=== PATIENT | female | born 1985 | race Caucasian/White ===

== ENCOUNTER 2016-10-02 21:55 | Emergency (ER) | payer OTHER ==
[2016-10-02 22:00] VITALS: PULSE 78; RESP 18; TEMP 98.1
[2016-10-02] MEDS ORDERED: diphenhydrAMINE 50 MG CAP PO STA (22:20)
[2016-10-02] MEDS ORDERED: predniSONE 20 MG TAB PO STA (22:21)
[2016-10-02] MEDS ORDERED: FAMOTIDINE 20 MG TAB PO STA (22:21)
--- NOTE | 2016-10-02 22:23 | ED ---
General Adult HPI - General Chief complaint: Allergic Reaction Stated complaint: allergic reaction Time Seen by Provider: 10/02/16 22:16 Source: patient, RN notes reviewed Mode of arrival: ambulatory Limitations: no limitations - History of Present Illness Initial comments: This is a 31-year-old female presents with hives to her elbows, the back of her neck, behind her ears and on her hands. This started this morning. Patient denies any known trigger for the hives. Patient denies any new routines, new lotions, new soaps, or new medications area and patient does not know why she has hives. Patient states the rash itches. Patient has tried hydrocortisone cream but it just keeps getting worse. Patient did not take Benadryl. Patient denies any chance of being . Patient denies any recent fever, chills, shortness breath, chest pain, abdominal pain, nausea/vomiting/diarrhea, back pain, numbness, tingling, hematuria, headache, or visual changes, or any other complaints. - Related Data Home Medications Medication Instructions Recorded Confirmed Methimazole 1 tab PO DAILY 10/02/16 10/02/16 Methocarbamol [Robaxin] 1 tab PO DAILY 10/02/16 10/02/16 Omeprazole 1 tab PO DAILY 10/02/16 10/02/16 Propranolol [Inderal] 1 tab PO DAILY 10/02/16 10/02/16 Venlafaxine HCl [Effexor XR] 1 tab PO DAILY 10/02/16 10/02/16 Previous Rx's Medication Instructions Recorded Famotidine [Pepcid] 20 mg PO DAILY 3 Days 10/02/16 diphenhydrAMINE [Benadryl] 25 mg PO TID 3 Days 10/02/16 predniSONE 20 mg PO DAILY 3 Days 10/02/16 Allergies Allergy/AdvReac Type Severity Reaction Status Date / Time No Known Allergies Allergy Verified 10/02/16 22:00 Review of Systems ROS Statement: Those systems with pertinent positive or pertinent negative responses have been documented in the HPI. ROS Other: All systems not noted in ROS Statement are negative. Past Medical History Past Medical History: No Reported History Additional Past Medical History / Comment(s): hyperthyroidism, graves History of Any Multi-Drug Resistant Organisms: MRSA Date of last positivie culture/infection: 2004 MDRO Source:: buttock Past Surgical History: No Surgical Hx Reported Past Psychological History: Anxiety, Depression Smoking Status: Never smoker Past Alcohol Use History: Rare Past Drug Use History: None Reported General Exam - General Exam Comments Initial Comments: General: The patient is awake and alert, in no distress, and does not appear acutely ill. Eye: Pupils are equal, round and reactive to light, extra-ocular movements are intact. No nystagmus. There is normal conjunctiva bilaterally. No signs of icterus. Ears: TMs pink and pearly with intact cone of light bilaterally. Normal external ear canals Nose: Nasal turbinates pink and moist Mouth and throat: There are moist mucous membranes and no oral lesions. Neck: The neck is supple, there is no tenderness or JVD. Cardiovascular: There is a regular rate and rhythm. No murmur, rub or gallop is appreciated. Respiratory: Lungs are clear to auscultation, respirations are non-labored, breath sounds are equal. No wheezes, stridor, rales, or rhonchi. Musculoskeletal: Normal ROM, no tenderness. Strength 5/5. Sensation intact. Radial Pulses equal bilaterally 2+. Neurological: A&O x 3. CN II-XII intact, There are no obvious motor or sensory deficits. Coordination appears grossly intact. Speech is normal. Skin: There is an erythematous and raised rash consistent with urticaria to the patient's extensor surfaces of the elbow, the back of the neck, behind the ears in starting on the front of her neck. This rash itches. This rash blanches. Skin is warm and dry. Psychiatric: Cooperative, appropriate mood & affect, normal judgment. Limitations: no limitations Course Vital Signs 10/02/16 21:58 Temperature 98.1 F Pulse Rate 78 Respiratory 18 Rate Blood Pressure 134/80 Medical Decision Making - Medical Decision Making This is 31-year-old female presents with urticaria that started today with no known trigger. On physical exam There is an erythematous and raised rash consistent with urticaria to the patient's extensor surfaces of the elbow, the back of the neck, behind the ears in starting on the front of her neck. This rash itches. This rash blanches. Skin is warm and dry. Patient was given Benadryl, Pepcid and prednisone in the [facility]. Urticaria was starting to diminish after these medications. Patient was still having some itching. With further questioning patient states she started a new medication, Methimazole, for her thyroid on September 14 and states that this may be the culprit. I discussed that patient should discontinue this medication and call her doctor regarding this. I discussed the patient will be given prescriptions for Benadryl, prednisone and Pepcid to take for the next 3 days. I discussed return parameters. Discussed that patient can continue hydrocortisone cream. I discussed return parameters.Discussed that patient should follow up with PCP in one to 2 days or return to the [facility] for any worsening symptoms or for any further concerns. Patient was receptive to this plan and patient will be discharged home. Disposition Clinical Impression: Urticaria Disposition: HOME SELF-CARE Condition: Good Instructions: Urticaria (ED) Additional Instructions: Please use Benadryl, Pepcid and prednisone as prescribed.Please use medication as discussed. Please follow-up with family doctor in the next 2 days of symptoms have not improved. Please return to emergency room if the symptoms increase or worsen or for any other concerns. Prescriptions: Famotidine [Pepcid] 20 mg PO DAILY 3 Days diphenhydrAMINE [Benadryl] 25 mg PO TID 3 Days predniSONE 20 mg PO DAILY 3 Days Referrals: Alicia Brown MD [Primary Care Provider] - 1-2 days Time of Disposition: 22:49
[2016-10-02 23:07] VITALS: BP 141/70
== END 2016-10-02 23:07 | disposition home or self-care (01) ==
LOC: EC 21:55
DX: L50.9 Urticaria, unspecified (principal); E05.90 Thyrotoxicosis, unspecified without thyrotoxic crisis or storm; F32.9 Major depressive disorder, single episode, unspecified; F41.9 Anxiety disorder, unspecified; Z79.899 Other long term (current) drug therapy; Z86.14 Personal history of Methicillin resistant Staphylococcus aureus infection
CPT/HCPCS: 99283; J7512

== ENCOUNTER → 2016-11-02 | Outpatient (CLI) | payer OTHER | LOC: LABWHC1 15:09 | PROVIDERS: ATTEND Internal Medicine Endocrinology, Diabetes & Metabolism | DX: E05.90 Thyrotoxicosis, unspecified without thyrotoxic crisis or storm (principal) | CPT/HCPCS: 36415; 84439; 84443 ==

== ENCOUNTER → 2017-02-01 | Outpatient (CLI) | payer OTHER ==
[2017-02-01 16:37] LABS: Basophils # (A) 0.1 k/uL (0-0.2); Basophils % (A) 0 %; CH 29.4; CHCM 34.4; Eosinophils # (A) 0.1 k/uL (0-0.7); Eosinophils % (A) 1 %; HCT 43.9 % (34.0-46.0); HDW 2.68; HGB 15.4 gm/dL (11.4-16.0); Luc # (Auto) 0.15; Luc % (Auto) 1; Lymphocytes # (A) 2.3 k/uL (1.0-4.8); Lymphocytes % (A) 15 %; MCH 30.1 pg (25.0-35.0); MCHC 35.1 g/dL (31.0-37.0); MCV 85.9 fL (80.0-100.0); Mean Platelet Volume 6.7; Monocytes # (A) 0.5 k/uL (0-1.0); Monocytes % (A) 3 %; Neutrophils # (A) 12.4 k/uL (1.3-7.7); Neutrophils % (A) 80 %; RBC 5.12 m/uL (3.80-5.40); RDW 12.7 % (11.5-15.5); WBC 15.5 k/uL (3.8-10.6); WBC (Perox) 14.93
== END | disposition home or self-care (01) ==
LOC: LABWHC1 16:20
PROVIDERS: ATTEND Internal Medicine Endocrinology, Diabetes & Metabolism
DX: E05.90 Thyrotoxicosis, unspecified without thyrotoxic crisis or storm (principal); N92.1 Excessive and frequent menstruation with irregular cycle; Z13.21 Encounter for screening for nutritional disorder
CPT/HCPCS: 36415; 82306; 84439; 84443; 84460; 85025

== ENCOUNTER → 2017-02-11 | Outpatient (CLI) | payer OTHER ==
--- NOTE | 2017-02-11 15:53 | US ---
EXAMINATION TYPE: US transvaginal DATE OF EXAM: 02/11/2017 COMPARISON: NONE, no prior ultrasound of the pelvis at this location. CLINICAL HISTORY: D25.9 FIBROID. known fibroid, pt states about 6.0cm at last scan done elsewhere TECHNIQUE: Transvaginal (TV) Date of LMP: about 2 wks ago EXAM MEASUREMENTS: Uterus: 9.1 x 4.4 x 6.0 cm Endometrial Stripe: 0.6 cm Right Ovary: 3.4 x 2.1 x 2.0 cm Left Ovary: 3.2 x 1.6 x 2.3cm cm 1. Uterus: Anteflexed with 6.8cm heterogeneous fibroid at the anterior uterine body, small nabothian cyst 2. Endometrium: wnl as seen 3. Right Ovary: wnl as seen 4. Left Ovary: wnl as seen 5. Bilateral Adnexa: wnl 6. Posterior cul-de-sac: no free fluid seen IMPRESSION: 1. Anterior 6.8 cm Uterine fibroid.
== END | disposition home or self-care (01) ==
LOC: RADUSWWP 14:56
PROVIDERS: ATTEND Obstetrics & Gynecology
DX: D25.9 Leiomyoma of uterus, unspecified (principal)
CPT/HCPCS: 76830

== ENCOUNTER → 2017-05-03 | Outpatient (CLI) | payer OTHER | END | disposition home or self-care (01) | LOC: LABWHC1 16:45 | PROVIDERS: ATTEND Internal Medicine Endocrinology, Diabetes & Metabolism | DX: E05.90 Thyrotoxicosis, unspecified without thyrotoxic crisis or storm (principal) | CPT/HCPCS: 36415; 84439; 84443 ==

== ENCOUNTER → 2017-08-08 | Outpatient (CLI) | payer OTHER ==
[2017-08-08 17:01] LABS: T4, Free (Free Thyroxine) 0.86 ng/dL (0.78-2.19)
== END | disposition home or self-care (01) ==
LOC: LABWHC1 15:55
PROVIDERS: ATTEND Internal Medicine Endocrinology, Diabetes & Metabolism
DX: E05.90 Thyrotoxicosis, unspecified without thyrotoxic crisis or storm (principal)
CPT/HCPCS: 36415; 84439; 84443

== ENCOUNTER → 2017-09-21 | Outpatient (CLI) | payer OTHER ==
[2017-09-21 16:50] LABS: T4, Free (Free Thyroxine) 1.04 ng/dL (0.78-2.19)
== END | disposition home or self-care (01) ==
LOC: LABWHC1 15:54
PROVIDERS: ATTEND Internal Medicine Endocrinology, Diabetes & Metabolism
DX: E05.90 Thyrotoxicosis, unspecified without thyrotoxic crisis or storm (principal)
CPT/HCPCS: 36415; 84439; 84443

== ENCOUNTER 2017-10-20 14:27 | Emergency (ER) | payer OTHER ==
[2017-10-20] MEDS ORDERED: SODIUM CHLORIDE 0.9% 500 ML IV STA (15:37)
--- NOTE | 2017-10-20 15:52 | ED ---
General Adult HPI - General Chief complaint: Chest Pain Stated complaint: chest pain Time Seen by Provider: 10/20/17 15:37 Source: patient, RN notes reviewed Mode of arrival: ambulatory Limitations: no limitations - History of Present Illness Initial comments: 32-year-old female presenting with left upper chest pain. Pain is sharp in nature. Pain began at approximately 11:30. Patient has history of Graves' disease, she was recently taken off of her PTU in August. She is not currently on any medication for Graves' disease, she is on 60 mg of Inderal daily. She states she did take this medication this morning. Patient states that when she had her chest pain she also had significant dyspnea and noted that her heart rate 130. This was with minimal exertion. She has persistent pain and dyspnea, evaluation. No abdominal pain. No cough. No fever or chills. No vomiting or diarrhea. Patient is also taking control. - Related Data Home Medications Medication Instructions Recorded Confirmed Methocarbamol [Robaxin] 750 mg PO BID PRN 10/02/16 10/20/17 Omeprazole 20 mg PO DAILY 10/02/16 10/20/17 Ibuprofen [Motrin] 800 mg PO TID PRN 10/20/17 10/20/17 Norgestimate-Ethinyl Estradiol 1 tab PO DAILY 10/20/17 10/20/17 [Ortho Tri-Cyclen 28 Tablet] Propranolol HCl [Propranolol HCl 60 mg PO DAILY 10/20/17 10/20/17 ER] Venlafaxine HCl [Effexor XR] 75 mg PO DAILY 10/20/17 10/20/17 Allergies Allergy/AdvReac Type Severity Reaction Status Date / Time methimazole Allergy Unknown Verified 10/20/17 16:07 Review of Systems ROS Statement: Those systems with pertinent positive or pertinent negative responses have been documented in the HPI. ROS Other: All systems not noted in ROS Statement are negative. Past Medical History Past Medical History: Thyroid Disorder Additional Past Medical History / Comment(s): hyperthyroidism, graves History of Any Multi-Drug Resistant Organisms: MRSA Date of last positivie culture/infection: 2004 MDRO Source:: buttock Past Surgical History: No Surgical Hx Reported Past Psychological History: Anxiety, Depression Smoking Status: Never smoker Past Alcohol Use History: None Reported Past Drug Use History: None Reported General Exam Limitations: no limitations General appearance: alert, in no apparent distress Head exam: Present: atraumatic, normocephalic Eye exam: Present: normal appearance, PERRL, EOMI ENT exam: Present: normal exam Respiratory exam: Present: normal lung sounds bilaterally, chest wall tenderness. Absent: respiratory distress, wheezes, rales Cardiovascular Exam: Present: regular rate, normal rhythm GI/Abdominal exam: Present: soft. Absent: distended, tenderness, guarding Extremities exam: Present: normal inspection, normal capillary refill. Absent: pedal edema, calf tenderness Back exam: Present: normal inspection, full ROM Neurological exam: Present: alert, oriented X3, CN II-XII intact. Absent: motor sensory deficit Psychiatric exam: Present: normal affect, normal mood Skin exam: Present: warm, dry, intact. Absent: cyanosis, diaphoretic Course Vital Signs 10/20/17 10/20/17 14:46 15:53 Temperature 98.3 F Pulse Rate 107 H 92 Respiratory 18 20 Rate Blood Pressure 132/83 139/75 O2 Sat by Pulse 100 100 Oximetry EKG Findings - EKG Comments: EKG Findings:: EKG: Normal sinus rhythm, ventricular rate 92, CA interval 146, QRS duration 78, QTC 425, no signs of acute ischemia or arrhythmia Medical Decision Making - Medical Decision Making 32-year-old female presenting with upper left chest pain and tachycardia. Chest pain is reproducible on exam. EKG nonischemic. Laboratory studies reveal normal CBC, d-dimer is negative. Electrolytes within normal limits, troponin negative. Thyroid studies reveal normal free T3 and T4, TSH is low. Patient will follow-up with endocrinology and her primary care physician. Chest x-ray negative for any acute disease. Return with any worsening or changing symptoms. - Lab Data Result diagrams: 10/20/17 15:47 10/20/17 15:47 Lab Results 10/20/17 10/20/17 10/20/17 Range/Units 15:47 15:47 15:47 WBC 9.3 (3.8-10.6) k/uL RBC 5.17 (3.80-5.40) m/uL Hgb 14.4 (11.4-16.0) gm/dL Hct 42.7 (34.0-46.0) % MCV 82.5 (80.0-100.0) fL MCH 27.9 (25.0-35.0) pg MCHC 33.8 (31.0-37.0) g/dL RDW 13.1 (11.5-15.5) % Plt Count 327 (150-450) k/uL Neutrophils % 63 % Lymphocytes % 27 % Monocytes % 6 % Eosinophils % 2 % Basophils % 1 % Neutrophils # 5.8 (1.3-7.7) k/uL Lymphocytes # 2.5 (1.0-4.8) k/uL Monocytes # 0.5 (0-1.0) k/uL Eosinophils # 0.2 (0-0.7) k/uL Basophils # 0.0 (0-0.2) k/uL PT (9.0-12.0) sec INR (<1.2) APTT (22.0-30.0) sec D-Dimer (<0.60) mg/L FEU Sodium 141 (137-145) mmol/L Potassium 4.0 (3.5-5.1) mmol/L Chloride 102 (98-107) mmol/L Carbon Dioxide 28 (22-30) mmol/L Anion Gap 11 mmol/L BUN 10 (7-17) mg/dL Creatinine 0.65 (0.52-1.04) mg/dL Est GFR (CKD-EPI)AfAm >90 (>60 ml/min/1.73 sqM) Est GFR (CKD-EPI)NonAf >90 (>60 ml/min/1.73 sqM) Glucose 87 (74-99) mg/dL Calcium 9.7 (8.4-10.2) mg/dL Magnesium 1.7 (1.6-2.3) mg/dL Total Bilirubin 0.2 (0.2-1.3) mg/dL AST 20 (14-36) U/L ALT 22 (9-52) U/L Alkaline Phosphatase 118 (38-126) U/L Total Creatine Kinase 44 (30-135) U/L CK-MB (CK-2) <0.2 (0.0-2.4) ng/mL CK-MB (CK-2) Rel Index Troponin I <0.012 (0.000-0.034) ng/mL Total Protein 7.0 (6.3-8.2) g/dL Albumin 4.0 (3.5-5.0) g/dL TSH 0.440 L (0.465-4.680) mIU/L Free T4 1.27 (0.78-2.19) ng/dL Free T3 pg/mL 5.0 (2.8-5.3) pg/ml 10/20/17 Range/Units 15:47 WBC (3.8-10.6) k/uL RBC (3.80-5.40) m/uL Hgb (11.4-16.0) gm/dL Hct (34.0-46.0) % MCV (80.0-100.0) fL MCH (25.0-35.0) pg MCHC (31.0-37.0) g/dL RDW (11.5-15.5) % Plt Count (150-450) k/uL Neutrophils % % Lymphocytes % % Monocytes % % Eosinophils % % Basophils % % Neutrophils # (1.3-7.7) k/uL Lymphocytes # (1.0-4.8) k/uL Monocytes # (0-1.0) k/uL Eosinophils # (0-0.7) k/uL Basophils # (0-0.2) k/uL PT 9.5 (9.0-12.0) sec INR 1.0 (<1.2) APTT 27.0 (22.0-30.0) sec D-Dimer 0.25 (<0.60) mg/L FEU Sodium (137-145) mmol/L Potassium (3.5-5.1) mmol/L Chloride (98-107) mmol/L Carbon Dioxide (22-30) mmol/L Anion Gap mmol/L BUN (7-17) mg/dL Creatinine (0.52-1.04) mg/dL Est GFR (CKD-EPI)AfAm (>60 ml/min/1.73 sqM) Est GFR (CKD-EPI)NonAf (>60 ml/min/1.73 sqM) Glucose (74-99) mg/dL Calcium (8.4-10.2) mg/dL Magnesium (1.6-2.3) mg/dL Total Bilirubin (0.2-1.3) mg/dL AST (14-36) U/L ALT (9-52) U/L Alkaline Phosphatase (38-126) U/L Total Creatine Kinase (30-135) U/L CK-MB (CK-2) (0.0-2.4) ng/mL CK-MB (CK-2) Rel Index Troponin I (0.000-0.034) ng/mL Total Protein (6.3-8.2) g/dL Albumin (3.5-5.0) g/dL TSH (0.465-4.680) mIU/L Free T4 (0.78-2.19) ng/dL Free T3 pg/mL (2.8-5.3) pg/ml Disposition Clinical Impression: Costalchondritis, Chest pain Disposition: HOME SELF-CARE Condition: Good Instructions: Costochondritis (ED), Chest Pain (ED) Referrals: Alicia Brown MD [Primary Care Provider] - 1-2 days Time of Disposition: 17:08
[2017-10-20 15:57] LABS: Basophils % (A) 1 %; Eosinophils # (A) 0.2 k/uL (0-0.7); Eosinophils % (A) 2 %; HCT 42.7 % (34.0-46.0); HGB 14.4 gm/dL (11.4-16.0); Lymphocytes # (A) 2.5 k/uL (1.0-4.8); Lymphocytes % (A) 27 %; MCH 27.9 pg (25.0-35.0); MCHC 33.8 g/dL (31.0-37.0); MCV 82.5 fL (80.0-100.0); Mean Platelet Volume 7.4; Monocytes # (A) 0.5 k/uL (0-1.0); Monocytes % (A) 6 %; Neutrophils # (A) 5.8 k/uL (1.3-7.7); Neutrophils % (A) 63 %; Platelet Count 327 k/uL (150-450); RBC 5.17 m/uL (3.80-5.40); RDW 13.1 % (11.5-15.5); WBC 9.3 k/uL (3.8-10.6)
[2017-10-20 16:06] LABS: ALT 22 U/L (9-52); AST 20 U/L (14-36); Alkaline Phosphatase 118 U/L (38-126); Anion Gap 11 mmol/L; Blood Urea Nitrogen 10 mg/dL (7-17); Calcium 9.7 mg/dL (8.4-10.2); Carbon Dioxide 28 mmol/L (22-30); Chloride 102 mmol/L (98-107); Glucose 87 mg/dL (74-99); Magnesium 1.7 mg/dL (1.6-2.3); Sodium 141 mmol/L (137-145); Total Bilirubin 0.2 mg/dL (0.2-1.3)
--- NOTE | 2017-10-20 16:19 | XR ---
EXAMINATION TYPE: XR chest 2V DATE OF EXAM: 10/20/2017 COMPARISON: 05/08/2015 HISTORY: 32-year-old female with chest pain TECHNIQUE: PA and lateral views FINDINGS: The cardiomediastinal silhouette, aorta, and pulmonary vasculature are within normal limits. Lungs an d pleural spaces are clear. IMPRESSION: No acute cardiopulmonary process.
[2017-10-20 16:20] LABS: D-Dimer 0.25 mg/L FEU (<0.60); Prothrombin Time 9.5 sec (9.0-12.0)
[2017-10-20 16:21] LABS: Creatine Kinase 44 U/L (30-135)
[2017-10-20 16:22] LABS: T4, Free (Free Thyroxine) 1.27 ng/dL (0.78-2.19)
[2017-10-20 16:33] LABS: Creatine Kinase MB <0.2 ng/mL (0.0-2.4); Troponin I <0.012 ng/mL (0.000-0.034)
[2017-10-20 17:45] VITALS: BP 128/70; PULSE 96; RESP 18; TEMP 98
== END 2017-10-20 17:45 | disposition home or self-care (01) ==
LOC: EC 14:27
DX: M94.0 Chondrocostal junction syndrome [Tietze] (principal); R00.0 Tachycardia, unspecified; F41.9 Anxiety disorder, unspecified; F32.9 Major depressive disorder, single episode, unspecified; Z86.14 Personal history of Methicillin resistant Staphylococcus aureus infection; Z79.3 Long term (current) use of hormonal contraceptives; Z79.899 Other long term (current) drug therapy; Z88.8 Allergy status to other drugs, medicaments and biological substances
CPT/HCPCS: 36415; 71046; 80053; 82550; 82553; 83735; 84439; 84443; 84481; 84484; 85025; 85379; 85610; 85730; 93005; 99285

== ENCOUNTER 2019-07-18 08:07 | Emergency (ER) | payer OTHER ==
[2019-07-18 08:14] VITALS: PULSE 85; RESP 18; TEMP 98.2
[2019-07-18] MEDS ORDERED: diphenhydrAMINE 25 MG CAP PO STA (08:25)
[2019-07-18] MEDS ORDERED: FAMOTIDINE 20 MG TAB PO STA (08:25)
[2019-07-18] MEDS ORDERED: methylPREDNISolone SOD SUCCI 125 MG/2 ML VIAL IM ONE (08:25)
--- NOTE | 2019-07-18 08:35 | ED ---
Allergic Reaction HPI - General Chief complaint: Allergic Reaction Stated complaint: Hives Time Seen by Provider: 07/18/19 08:18 Source: patient, RN notes reviewed, old records reviewed Mode of arrival: ambulatory Limitations: no limitations - History of Present Illness Initial Comments: Patient is a 34-year-old female, who presents emergency department today for evaluation for hives. Patient reports that symptoms started 3 days ago. Patient reports that she thinks is related to new medication of trazodone. Patient states that she distended tense swelling or difficulty breathing. Denies any other complaints at this time. Patient states that she has taken Benadryl last night but reports that the hives worsened this morning. - Related Data Home Medications Medication Instructions Recorded Confirmed Methocarbamol [Robaxin] 750 mg PO BID PRN 10/02/16 10/20/17 Omeprazole 20 mg PO DAILY 10/02/16 10/20/17 Ibuprofen [Motrin] 800 mg PO TID PRN 10/20/17 10/20/17 Norgestimate-Ethinyl Estradiol 1 tab PO DAILY 10/20/17 10/20/17 [Ortho Tri-Cyclen 28 Tablet] Propranolol HCl [Propranolol HCl 60 mg PO DAILY 10/20/17 10/20/17 ER] Venlafaxine HCl [Effexor XR] 75 mg PO DAILY 10/20/17 10/20/17 Allergies Allergy/AdvReac Type Severity Reaction Status Date / Time methimazole Allergy Unknown Verified 10/20/17 16:07 Review of Systems ROS Statement: Those systems with pertinent positive or pertinent negative responses have been documented in the HPI. ROS Other: All systems not noted in ROS Statement are negative. Past Medical History Past Medical History: Thyroid Disorder Additional Past Medical History / Comment(s): hyperthyroidism, graves tachycardia palpations History of Any Multi-Drug Resistant Organisms: MRSA Date of last positivie culture/infection: 2004 MDRO Source:: buttock Past Surgical History: No Surgical Hx Reported Past Psychological History: Anxiety, Depression Smoking Status: Never smoker Past Alcohol Use History: None Reported Past Drug Use History: None Reported General Exam - General Exam Comments Initial Comments: 34-year-old female Limitations: no limitations General appearance: alert, in no apparent distress Head exam: Present: atraumatic Eye exam: Present: normal appearance, PERRL, EOMI. Absent: scleral icterus, conjunctival injection, periorbital swelling ENT exam: Present: normal exam, normal oropharynx, mucous membranes moist Neck exam: Present: normal inspection. Absent: tenderness, meningismus, lymphadenopathy Respiratory exam: Present: normal lung sounds bilaterally. Absent: respiratory distress, wheezes, rales, rhonchi, stridor Cardiovascular Exam: Present: regular rate, normal rhythm, normal heart sounds. Absent: systolic murmur, diastolic murmur, rubs, gallop, clicks GI/Abdominal exam: Present: soft, normal bowel sounds. Absent: distended, tenderness, guarding, rebound, rigid Extremities exam: Present: normal inspection, full ROM, normal capillary refill. Absent: tenderness, pedal edema, joint swelling, calf tenderness Back exam: Present: normal inspection Neurological exam: Present: alert, oriented X3, CN II-XII intact Psychiatric exam: Present: normal affect, normal mood Skin exam: Present: warm, dry, intact, normal color, rash (hives noted over neck, chest, and abdomen. ) Course Vital Signs 07/18/19 08:10 Temperature 98.2 F Pulse Rate 85 Respiratory 18 Rate Blood Pressure 136/92 O2 Sat by Pulse 97 Oximetry Medical Decision Making - Medical Decision Making 34-year-old female presents today for concern for hives. Patient refused related trazodone she started 3 weeks ago. She is no tongue or lip swelling. She does have evidence of hives or back chest and abdomen. Patient was given a Medrol Pepcid and Benadryl. I discussed the Patient can avoid any new exposures and can discontinue trazodone for another 2-3 days. Discussed if she had any further complaints she can always return for reevaluation. Discussed discharging with prescription for prednisone and Pepcid Disposition Clinical Impression: Hives Disposition: HOME SELF-CARE Condition: Good Instructions (If sedation given, give patient instructions): Urticaria (ED) Additional Instructions: Patient to use cool compresses over the areas of rashes. Follow-up with a primary care doctor. Discontinue any new medications or avoid any new exposures until determining source of reaction. Is patient prescribed a controlled substance at d/c from ED?: No Referrals: Alicia Brown MD [Primary Care Provider] - 1-2 days Time of Disposition: 08:34
[2019-07-18 08:45] VITALS: BP 130/80
== END 2019-07-18 08:44 | disposition home or self-care (01) ==
LOC: EC 08:07
DX: L50.9 Urticaria, unspecified (principal); F41.9 Anxiety disorder, unspecified; F32.9 Major depressive disorder, single episode, unspecified; Z79.899 Other long term (current) drug therapy; Z88.8 Allergy status to other drugs, medicaments and biological substances
CPT/HCPCS: 99283; J2930

== ENCOUNTER 2019-07-20 08:26 | Emergency (ER) | payer OTHER ==
[2019-07-20 08:31] VITALS: TEMP 98.1
[2019-07-20] MEDS ORDERED: methylPREDNISolone SOD SUCCI 125 MG/2 ML VIAL IV STA (08:36)
[2019-07-20] MEDS ORDERED: FAMOTIDINE 20 MG/2 ML VIAL IV STA (08:37)
[2019-07-20] MEDS ORDERED: diphenhydrAMINE 50 MG/ML 1 ML VIAL IVP STA (08:37)
--- NOTE | 2019-07-20 08:52 | ED ---
Allergic Reaction HPI - General Chief complaint: Allergic Reaction Stated complaint: allergic rxn Time Seen by Provider: 07/20/19 08:32 Source: patient Mode of arrival: ambulatory Limitations: no limitations - History of Present Illness Initial Comments: 34-year-old female presents today for chief complaint of ALLERGIC reaction. Patient states that she was seen here 2 days prior for ALLERGIC reaction which she felt was due to trazodone. Patient states she has discontinued the medication now for 3 days however today she felt like after she took the medication that her throat was closing and had hives. Denies lip or tongue swelling, eye swelling, nausea, vomiting or diarrhea. Patient states she was super anxious and her mother drove her to the ER. Upon arrival patient does not have wheezing nor stridor but appears very anxious. remaining ROS (-), including denial of chest pain, shortness of breath. - Related Data Home Medications Medication Instructions Recorded Confirmed Methocarbamol [Robaxin] 750 mg PO BID PRN 10/02/16 10/20/17 Omeprazole 20 mg PO DAILY 10/02/16 10/20/17 Ibuprofen [Motrin] 800 mg PO TID PRN 10/20/17 10/20/17 Norgestimate-Ethinyl Estradiol 1 tab PO DAILY 10/20/17 10/20/17 [Ortho Tri-Cyclen 28 Tablet] Propranolol HCl [Propranolol HCl 60 mg PO DAILY 10/20/17 10/20/17 ER] Venlafaxine HCl [Effexor XR] 75 mg PO DAILY 10/20/17 10/20/17 Previous Rx's Medication Instructions Recorded EPINEPHrine (Auto Inject) [Epipen] 0.3 mg IM ONCE PRN 1 Days #1 pen 07/20/19 Allergies Allergy/AdvReac Type Severity Reaction Status Date / Time methimazole Allergy Unknown Verified 10/20/17 16:07 Review of Systems ROS Statement: Those systems with pertinent positive or pertinent negative responses have been documented in the HPI. ROS Other: All systems not noted in ROS Statement are negative. Past Medical History Past Medical History: Thyroid Disorder Additional Past Medical History / Comment(s): hyperthyroidism, graves tachycardia palpations History of Any Multi-Drug Resistant Organisms: MRSA Date of last positivie culture/infection: 2004 MDRO Source:: buttock Past Surgical History: No Surgical Hx Reported Past Psychological History: Anxiety, Depression Smoking Status: Never smoker Past Alcohol Use History: None Reported Past Drug Use History: None Reported General Exam - General Exam Comments Initial Comments: General: The patient is awake and alert, appears anxious Eye: +3 mm pupils are equal, round and reactive to light, extra-ocular movements are intact. No nystagmus. There is normal conjunctiva bilaterally. No signs of icterus. Ears, nose, mouth and throat: There are moist mucous membranes and no oral lesions. No tongue, lip or oral mucosa swelling. Orpharynx appears mildly erythematous otherwise uvula midline Neck: The neck is supple, there is no tenderness or JVD. Cardiovascular: There is a regular rate and rhythm. No murmur, rub or gallop is appreciated. Respiratory: Lungs are clear to auscultation, respirations are non-labored, breath sounds are equal. No wheezes, stridor, rales, or rhonchi. Gastrointestinal: Soft, non-distended, non-tender abdomen without masses or organomegaly noted. There is no rebound or guarding present. Musculoskeletal: Normal ROM, no tenderness. Strength 5/5. Sensation intact. Radial pulses equal bilaterally 2+. Neurological: A&O x 3. CN II-XII intact grossly, There are no obvious motor or sensory deficits. Coordination appears grossly intact. Speech is normal. Skin: Skin is warm and dry. raised wheals on the UE and chest, blanchable no vesicular lesions or peeling skin. Psychiatric: Cooperative, appropriate mood & affect, normal judgment. Limitations: no limitations Course Vital Signs 07/20/19 07/20/19 08:28 08:54 Temperature 98.1 F Pulse Rate 127 H 89 Respiratory 18 16 Rate Blood Pressure 133/90 110/89 O2 Sat by Pulse 96 99 Oximetry - Reevaluation(s) Reevaluation #1: 07/20/19 10:19 Patient states she feels maybe she has a sore throat, no longer experiencing compressive symptoms, requesting flu test, patient afebrile very mild erythema of the oropharynx Medical Decision Making - Medical Decision Making 34-year-old male presenting today for chief complaint of ALLERGIC reaction. Patient complaining of hives feels like her throat is closing. She states her throat has been hurting. Patient denies fevers. Exam reveals erythema and no swelling. Midline. Patient has no stridor or wheezing. Patient given solumedrol Pepcid and Benadryl. She states that she no longer is compressive symptoms and the hives are going away however patient states she feels she may have an illness causing the soreness of the throat. Given no exudates/tonsillar enlargement, or lymphadenopathy I have more suspicion for viral/influenza. Patient requesting influenza swab, and is agreeable to discharge she states she just got her prednisone filled and has no yet taken it. Patient discharged appearing well after discussing the case with Dr. Dominique. Disposition Clinical Impression: Allergic reaction Disposition: HOME SELF-CARE Condition: Good Instructions (If sedation given, give patient instructions): Urticaria (ED), Anaphylaxis (ED) Additional Instructions: Please use medication as discussed. Please follow-up with family doctor in the next 2 days, board handler and call PCP about medication review today as soon as you leave. Please return to emergency room if the symptoms increase or worsen or for any other concerns. Prescriptions: EPINEPHrine (Auto Inject) [Epipen] 0.3 mg IM ONCE PRN 1 Days #1 pen PRN Reason: Anaphylaxis Is patient prescribed a controlled substance at d/c from ED?: No Referrals: Alicia Brown MD [Primary Care Provider] - 1-2 days Time of Disposition: 09:49
[2019-07-20 10:25] VITALS: BP 103/68; PULSE 78; RESP 18
== END 2019-07-20 10:24 | disposition home or self-care (01) ==
LOC: EC 08:26
DX: T78.40XA Allergy, unspecified, initial encounter (principal); F41.9 Anxiety disorder, unspecified; F32.9 Major depressive disorder, single episode, unspecified; Z79.899 Other long term (current) drug therapy; Z88.8 Allergy status to other drugs, medicaments and biological substances
CPT/HCPCS: 87502; 99283; 96374; 96375 ×2; J1200; J2930

== ENCOUNTER 2020-11-06 18:01 | Emergency (ER) | payer BC, OTHER ==
[2020-11-06 18:15] VITALS: RESP 18; TEMP 98
[2020-11-06] MEDS ORDERED: PERMETHRIN 5% CREAM 60 GM TUBE TOPICAL STA (20:13)
--- NOTE | 2020-11-06 20:13 | ED ---
General Adult HPI - General Chief complaint: Skin/Abscess/Foreign Body Stated complaint: Skin Issue Time Seen by Provider: 11/06/20 19:49 Source: patient Mode of arrival: ambulatory Limitations: no limitations - History of Present Illness Initial comments: 35-year-old female with a past medical history of hypothyroidism, tachycardia presents to the emergency room for a chief complaint of rash on the left wrist. Patient reports that she has of rash that has been there for a few days now. States she is concerned it is scabies. States she has seen scabies several times because she works at the [employer] and it looks similar. States it is tracking across her wrist. It is itchy. Patient has no other complaints at this time including shortness of breath, chest pain, abdominal pain, nausea or vomiting, headache, or visual changes. - Related Data Home Medications Medication Instructions Recorded Confirmed Omeprazole 20 mg PO DAILY 10/02/16 10/20/17 methocarbamoL [Robaxin] 750 mg PO BID PRN 10/02/16 10/20/17 Ibuprofen [Motrin] 800 mg PO TID PRN 10/20/17 10/20/17 Norgestimate-Ethinyl Estradiol 1 tab PO DAILY 10/20/17 10/20/17 [Ortho Tri-Cyclen 28 Tablet] Propranolol HCl [Propranolol HCl 60 mg PO DAILY 10/20/17 10/20/17 ER] Venlafaxine HCl [Effexor XR] 75 mg PO DAILY 10/20/17 10/20/17 Previous Rx's Medication Instructions Recorded EPINEPHrine (Auto Inject) [Epipen] 0.3 mg IM ONCE PRN 1 Days #1 pen 07/20/19 Allergies Allergy/AdvReac Type Severity Reaction Status Date / Time methimazole Allergy Unknown Verified 10/20/17 16:07 trazodone Allergy Unknown Verified 11/06/20 18:12 Review of Systems ROS Statement: Those systems with pertinent positive or pertinent negative responses have been documented in the HPI. ROS Other: All systems not noted in ROS Statement are negative. Past Medical History Past Medical History: Thyroid Disorder Additional Past Medical History / Comment(s): hyperthyroidism, graves tachycardia palpations History of Any Multi-Drug Resistant Organisms: MRSA Date of last positivie culture/infection: 2004 MDRO Source:: buttock Past Surgical History: No Surgical Hx Reported Past Psychological History: Anxiety, Depression Smoking Status: Never smoker Past Alcohol Use History: Rare Past Drug Use History: None Reported General Exam Limitations: no limitations General appearance: alert, in no apparent distress Head exam: Present: atraumatic, normocephalic, normal inspection Eye exam: Present: normal appearance, PERRL, EOMI. Absent: scleral icterus, conjunctival injection, periorbital swelling ENT exam: Present: normal exam, mucous membranes moist Neck exam: Present: normal inspection. Absent: tenderness, meningismus, lymphadenopathy Respiratory exam: Present: normal lung sounds bilaterally. Absent: respiratory distress, wheezes, rales, rhonchi, stridor Cardiovascular Exam: Present: regular rate, normal rhythm, normal heart sounds. Absent: systolic murmur, diastolic murmur, rubs, gallop, clicks GI/Abdominal exam: Present: soft, normal bowel sounds. Absent: distended, tenderness, guarding, rebound, rigid Extremities exam: Present: other (Patient has erythematous linear raised markings on the volar and dorsal left wrist. no surrounding eythema. no evidence of cellulitis) Course Vital Signs 11/06/20 18:13 Temperature 98.0 F Pulse Rate 71 Respiratory 18 Rate Blood Pressure 126/76 O2 Sat by Pulse 99 Oximetry Medical Decision Making - Medical Decision Making Patient presents with rash consistent with scabies infection. Will be treated with permethrin. Will follow up with primary care. Will return here for any worsening symptoms. Disposition Clinical Impression: Rash Narrative: possible scabies Disposition: HOME SELF-CARE Condition: Good Instructions (If sedation given, give patient instructions): Scabies (ED) Additional Instructions: Wash all linens and clothes in hot water or bag balky items and keep sealed for 2 weeks. Please apply lotion from neck down. Leave on for 8-12 hours and then wash off. If incomplete effect, reapply in 1-2 weeks. Follow-up with primary care. Otherwise return to the emergency room for any worsening symptoms. Is patient prescribed a controlled substance at d/c from ED?: No Referrals: Alicia Brown MD [Primary Care Provider] - 1-2 days Time of Disposition: 20:12
[2020-11-06 20:55] VITALS: BP 137/93; PULSE 81
== END 2020-11-06 20:54 | disposition home or self-care (01) ==
LOC: EC 18:01
DX: R21 Rash and other nonspecific skin eruption (principal); F41.9 Anxiety disorder, unspecified; F32.9 Major depressive disorder, single episode, unspecified
CPT/HCPCS: 99282